=== PATIENT | female | born 1940 | race Caucasian/White ===

== ENCOUNTER → 2016-11-02 | Outpatient (CLI) | payer OTHER ==
--- NOTE | 2016-11-02 17:54 | RADRPT ---
PROCEDURE: XR Pelvis and Hips. CLINICAL INDICATION: Pelvic pain. Bilateral hip pain. TECHNIQUE: Five views. Frontal pelvis. Frontal and lateral right hip. Frontal and lateral left hip. COMPARISON: No prior studies are available for comparison. FINDINGS: There is no fracture or dislocation. The soft tissues are normal. There are severe degenerative changes of both hips with joint space narrowing, osteophytes, subartic ular sclerosis, and mild deformity. There is no lytic or blastic lesion. There are degenerative changes of the lower lumbar spine. IMPRESSION: 1. Severe degenerative changes of both hips. RPTAT: QQ .Roger Meneses MD, MD Date Time Electronically viewed and signed by .Roger Meneses MD, on 11/02/2016 17:53 .R/
== END | disposition home or self-care (01) ==
LOC: HKI 10:45
PROVIDERS: ATTEND Orthopaedic Surgery
DX: M16.0 Bilateral primary osteoarthritis of hip (principal); M25.551 Pain in right hip; M25.552 Pain in left hip
CPT/HCPCS: 73523; G0463

== ENCOUNTER → 2016-11-21 | Outpatient (CLI) | payer OTHER ==
[~2016-11-21] MED LIST: MELO7.5O PO; OMEP40CA6 PO; TRAM50TA2 PO
== END | disposition home or self-care (01) ==
LOC: HKI 10:27
PROVIDERS: ATTEND Orthopaedic Surgery
DX: M25.551 Pain in right hip (principal); M25.552 Pain in left hip; M16.0 Bilateral primary osteoarthritis of hip
CPT/HCPCS: G0463

== ENCOUNTER 2016-11-29 05:50 | Inpatient (IN) | payer OTHER ==
[~2016-11-29] VITALS: Ht 162.6 cm; Wt 84.4 kg
[2016-11-29] VITALS (38 sets, daily range): BP systolic 113–162; BP diastolic 45–96; PULSE 70–86; RESP 10–29; Ht 162.6 cm; Wt 84.4 kg
[2016-11-29] MEDS: LACTATED RINGER'S 1,000 ML IV SCH ×5 (05:30→21:54)
[~2016-11-29 05:50] MED LIST changes: +BUPIVACAINE LIPOSOME/PF 266 MG/20 ML VIAL INFIL ONE; +CEFAZOLIN 2GM/50 ML (PMX) 50 ML X1 BEFORE INCISION IVPB ONE; +CELECOXIB 400 MG PO X1 DOSE PO ONE; +LACTATED RINGER'S 1,000 ML IV SCH; -MELO7.5O PO; -OMEP40CA6 PO; +PAIN COCKTAIL-CEFUROXIME IRR ONE; +PREGABALIN 300 MG PO X1 PO ONE; +SOD CHLORIDE 0.9% IV ONE; -TRAM50TA2 PO; +TRANEXAMIC ACID 830 MG in SOD CHLORIDE 0.9% 100 ML IVPB ONE; +TRANEXAMIC ACID IV ONE; +oxyCODONE (CR) 10 MG TAB [oxyCONTIN] X1 DOSE PO ONE; +traMADOL 50 MG TAB X 1 DOSE PO ONE
[2016-11-29] MEDS ORDERED: BACITRACIN 50000 UNITS INJ ONE (06:35)
[2016-11-29] MEDS ORDERED: DESFLURANE 15 MIN ONE (07:00)
[2016-11-29] MEDS ORDERED: POLYMYXIN B 500000 UNIT INJ ONE (07:05)
[2016-11-29] MEDS ORDERED: VANCOMYCIN 1 GM INJ ONE (07:05)
[2016-11-29] MEDS ORDERED: SODIUM CL BACTERIOSTATIC 30 ML INJ ONE (07:05)
--- NOTE | 2016-11-29 07:17 | HPN ---
Date/Time of Note Date/Time of Note DATE: 11/29/16 TIME: 07:17 Interval H&P Admission Note Pt. seen H&P reviewed: No system changes No change from H&P on 11/15/16 by MONET Holder MD Nov 29, 2016 07:17
[2016-11-29] MEDS ORDERED: FENTAnyl 50 MCG/ML VIAL ONE (07:21)
[2016-11-29] MEDS ORDERED: OMEP40CA6 PO (07:27)
[2016-11-29] MEDS ORDERED: MELO7.5O PO (07:28)
[2016-11-29] MEDS ORDERED: TRAM50TA2 PO (07:28)
[2016-11-29] MEDS ORDERED: MIDAZOLAM 1 MG/ML 2 ML INJ ONE (07:59)
[2016-11-29] MEDS ORDERED: ONDANSETRON 4 MG INJ ONE (08:11)
[2016-11-29] MEDS ORDERED: EPHEDrine SULFATE 50 MG/5 ML SYG ONE (08:11)
[2016-11-29] MEDS ORDERED: SUCCINYLCHOLINE CHLORIDE 100 MG/5 ML SYG IV ONE (08:11)
[2016-11-29] MEDS ORDERED: PROPOFOL 20 ML ONE (08:11)
[2016-11-29] MEDS ORDERED: ROCURONIUM 50 MG INJ ONE (08:11)
[2016-11-29] MEDS ORDERED: LIDOCAINE 2% (SDV) 5 ML INJ ONE (08:11)
[2016-11-29] MEDS ORDERED: DEXAMETHASONE 4 MG/ML 1 ML INJ ONE (08:11)
[2016-11-29] MEDS ORDERED: PROPOFOL 100 ML ONE (08:11)
[2016-11-29] MEDS ORDERED: FAMOTIDINE 20 MG INJ ONE (08:11)
[2016-11-29] MEDS ORDERED: ONDANSETRON 4 MG INJ IV PRN ×2 (10:00→10:30)
[2016-11-29] MEDS ORDERED: FENTAnyl 50 MCG/ML VIAL IV PRN (10:00)
[2016-11-29] MEDS ORDERED: DIPHENHYDRAMINE 50 MG INJ IV PRN (10:00)
[2016-11-29] MEDS ORDERED: MEPERIDINE 25 MG INJ IV PRN (10:00)
[2016-11-29] MEDS ORDERED: PROCHLORPERAZINE 10 MG INJ IV PRN (10:00)
[2016-11-29] MEDS ORDERED: HYDROmorphONE (0.2 MG/ML) 10ML SYG IV PRN (10:00)
--- NOTE | 2016-11-29 10:28 | PN ---
Date/Time of Note Date/Time of Note DATE: 11/29/16 TIME: 10:26 Assessment/Plan Lines/Catheters IV Catheter Type (from Nrsg): Peripheral IV Assessment/Plan Assessment/Plan Stable in PACU, s/p right anterior LETICIA -continue abx until drains removed -pain meds as needed -ASA/SCDs for DVT prophylaxis -OOB with PT -check AM labs -monitor drain -d/c gallegos in AM XR of the right hip is pending at this time Subjective 24 Hr Interval Summary Stable in PACU. Moving all extremities. Denies pain. Exam/Review of Systems Vital Signs Vitals Vital Signs Date Time Temp Pulse Resp B/P Pulse Ox O2 Delivery O2 Flow Rate FiO2 11/29/16 10:19 97.9 11/29/16 07:16 80 16 159/70 98 Exam Free Text/Dictation Hemovac: minimal Dressing dry Incision clean, dry, and intact without redness or drainage 5/5 Quadriceps, Tibialis Anterior, EHL, Gastroc, Soleus, Peroneals Normal sensation Palpable DT/PT, CR <2 sec No distal edema HOWARD TRINIDAD PA-C Nov 29, 2016 10:28
--- NOTE | 2016-11-29 10:29 | OPR ---
Date/Time of Note Date/Time of Note DATE: 11/29/16 TIME: 10:27 Operative Report Free Text/Dictation Dictation # [id number] Procedure Date: Nov 29, 2016 Preoperative Diagnosis Right Hip OA Postoperative Diagnosis Same Operation Performed Right Anterior LETICIA Surgeon: MONET PHELPS MD outpatient physical therapist assistant: HOWARD TRINIDAD PA-C Anesthesia: general, spinal Anesthesiologist: JOZEF SWANSON MD Estimated Blood Loss: 250 - 300 ml's Specimens Femoral Head Tubes/Drains Hemovac x 1 Complications: None Pt Condition Post Procedure: stable Disposition: PACU MONET PHELPS MD Nov 29, 2016 10:29
[2016-11-29] MEDS ORDERED: oxyCODONE 5 MG TAB PO PRN (10:30)
[2016-11-29] MEDS ORDERED: NACL 0.9% 3 ML SYG IV SCH (10:30)
[2016-11-29] MEDS ORDERED: MAGNESIUM HYDROXIDE 30ML CUP PO PRN (10:30)
[2016-11-29] MEDS ORDERED: ASPIRIN (EC) 325 MG TAB PO ONE (10:30)
[2016-11-29] MEDS ORDERED: BISACODYL 10 MG SUPP PR PRN (10:30)
[2016-11-29] MEDS ORDERED: DIPHENHYDRAMINE 25 MG CAP PO PRN (10:30)
[2016-11-29] MEDS ORDERED: HYDROmorphONE 1 MG/ML SYG IV PRN (10:30)
[2016-11-29] MEDS ORDERED: NA PHOSPHATE/BIPHOS 133 ML ENEMA PR PRN (10:30)
[2016-11-29] MEDS: CEFAZOLIN 2 GM/50 ML (PMX) 50 ML IVPB SCH ×2 (10:36→20:35)
[2016-11-29 11:03] LABS: HEMATOCRIT 36.6 % (37.0-47.0); HEMOGLOBIN 11.9 g/dl (12.0-16.0)
[2016-11-29 11:07] LABS: ADD UMIC YES; URINE BILIRUBIN (Dip) NEGATIVE (NEGATIVE); URINE BLOOD (Dip) 3+ (NEGATIVE); URINE COLOR LT. YELLOW (YELLOW); URINE GLUCOSE (Dip) NEGATIVE (NEGATIVE); URINE KETONES (Dip) NEGATIVE (NEGATIVE); URINE LEUKOCYTE ESTERASE (Dip) NEGATIVE (NEGATIVE); URINE NITRITE (Dip) NEGATIVE (NEGATIVE); URINE TOTAL PROTEIN (Dip) NEGATIVE (NEGATIVE); URINE UROBILINOGEN (Dip) 0.2 E.U./dL (0.1-1.0)
--- NOTE | 2016-11-29 11:09 | OPR ---
DATE OF OPERATION: 11/29/2016 PREOPERATIVE DIAGNOSIS: Right hip osteoarthritis. POSTOPERATIVE DIAGNOSIS: Right hip osteoarthritis. OPERATION PERFORMED: Right anterior total hip arthroplasty. SURGEON: Monet Garcia MD LARDER COOK: AMBER Fermin COMPONENTS USED: DePuy size 50 mm Gription Bo[place] cup, 50/32 neutral AltrX polyethylene liner, size 6 standard Actis stem, 32+1 ceramic head. ANESTHESIA: Spinal plus general endotracheal intubation, plus periarticular injection. ANESTHESIOLOGIST: Dr. Rosalina Corrales ESTIMATED BLOOD LOSS: 300 mL INTRAVENOUS FLUIDS: 2250 mL of crystalloid. SPECIMENS: Femoral head. DRAINS: Hemovac x1 COMPLICATIONS: None. DISPOSITION: The patient tolerated the procedure well and was taken to the recovery room in stable condition. INDICATIONS: The patient is a 75-year-old woman who has had progressive worsening pain in the right hip with radiographic evidence of severe osteoarthritis. She has failed non-surgical means of treatment to control her pain, including activity modifications, pain medications and ambulatory assist devices. Despite these measures, she has had worsening pain, and I felt she would benefit from a total hip arthroplasty through an anterior approach. The risks, benefits, and alternatives of the procedure were explained in detail to the patient. I explained the risks of the surgery to include, but not be limited to: bleeding and possible need for blood transfusion; infection; pain; stiffness; neurovascular injury with possible numbness, weakness, and/or paralysis anywhere from the hip down to the toes; fracture; instability; dislocation; leg length inequality; wear and/or loosening of the prosthesis and possible need for future revision; blood clots; pulmonary embolism; and anesthetic complications such as heart attack, stroke, GI bleed, pneumonia, and/ or . Ample time was allowed for the patient to ask questions, all of which were addressed and answered. The patient understood the risks involved and wished to proceed. Informed consent was signed prior to the procedure. PROCEDURE: The patient's right hip was initialed with a marking pen in the preoperative area to identify the correct operative site. The patient was brought to the operating room and transferred from the [facility] to the [facility] where a spinal anesthetic was administered. The patient was then anesthetized and intubated. A Hallman catheter was placed. Both feet were placed into well-padded boots which were then placed into the leg holders of the traction booms. A timeout was performed to confirm that the right side was the correct operative site. The patient was given 2 g of intravenous Ancef within one hour prior to the procedure. The operative hip was prepped and draped in the usual sterile fashion. A 10 cm oblique incision was made over the anterior aspect of the hip and carried down through subcutaneous tissue and fat with sharp dissection. The tensor fascia vargas was incised along the length of the wound. The tensor fascia muscle was retracted laterally and the sartorius medially. The anterior circumflex vessels were identified and tied off with 2-0 silk suture and coagulated with the Tissue Link diver pumper. The rectus femoris was elevated off the anterior capsule and an anterior capsulectomy performed. A femoral neck osteotomy was made and the head removed from the acetabulum. The acetabulum was denuded of cartilage circumferentially, as was the femoral head. Retractors were placed around the acetabulum. The remnants of the labrum and ligamentum teres were excised. I reamed the acetabulum to the medial wall and then went into an anatomic position and increased the reamer size in 2 mm increments until I got a good bite and was down to bleeding subchondral bone. The Boise cup was opened and impacted into the acetabulum and sat flush circumferentially, getting a good bite. C-arm imaging showed it had about 40 to 45 degrees of abduction and 20 degrees of anteversion. The real liner was opened and impacted into the acetabulum and sat flush circumferentially. Attention was turned towards the femur. The operative leg was carefully lowered to the floor with the leg adducted. The foot was then externally rotated to approximately 110 degrees. A posteromedial release was performed to optimize exposure. The femoral hook was placed underneath the proximal femur and the hydraulic lift was then used to elevate the femur up out of the wound. The cookie cutter osteotome was used to remove the remaining overhanging greater trochanter. The femur was then broached, going up in one size increments until it sat flush with the neck cut and a stable fit was achieved. The trial neck and head were assembled and reduced into the acetabulum. Fluoroscopic imaging showed the components to be in good position and the leg lengths and offsets to be equal. At this point, the trial was dislocated and the trial broach removed. The canal was irrigated and dried. The real stem was opened and impacted into the femur. The trunnion was irrigated and dried, and the real femoral head was impacted onto the trunnion, and reduced into the acetabulum. The soft tissues were infiltrated with a mixture of 150 mg of 0.5% Bupivacaine, 8 mg of Duramorph, 300 mcg of epinephrine, 30 mg of Toradol, 100 mcg of clonidine, 750 mg of cefuroxime and 86 mL of normal saline, followed by an injection of 266 mg of liposomal Bupivacaine. At this point the hip was irrigated with a mixture of betadine/saline and then antibiotic saline with pulsatile lavage. A Hemovac drain was placed in the deep portion of the wound and brought out the anterolateral thigh. There was good hemostasis. The tensor fascia vargas was repaired with a running #1 Vicryl. The deep fat layer was irrigated and closed with 2-0 Stratafix and the subcutaneous layer closed with 3 -0 Vicryl and the skin was closed with osiris and then sealed with Dermabond. The drain was secured with 3-0 nylon. Dictated By: MONET VERMA/SALLIE Conf#: [id number] DID#: [id number] MTDJoe
[2016-11-29 11:11] LABS: BACTERIA,URINE MANY
[2016-11-29 11:16] LABS: CALCIUM 8.6 mg/dl (8.4-10.2); CREATININE 0.61 mg/dl (0.44-1.00); POTASSIUM 3.8 mmol/L (3.5-5.1)
[2016-11-29] MEDS ORDERED: EXPAREL NOTE (BUPIVICAINE LIPOSOMAL) XX SCH ×2 (12:00)
[2016-11-29] MEDS: traMADol 50 MG TAB PO SCH ×2 (12:00→18:19)
[2016-11-29] MEDS: ACETAMINOPHEN 1000MG/100ML IV 100 ML IVPB SCH ×2 (12:00→18:18)
--- NOTE | 2016-11-29 12:06 | RADRPT ---
PROCEDURE: X-ray fluoroscopy guidance CLINICAL INDICATION: Right hip pain, right hip replacement, fluoroscopic guidance. TECHNIQUE: Fluoroscopic guidance was utilized for an intraoperative procedure. COMPARISON: None available FINDINGS: Fluoroscopic guidance was utilized for and intraoperative procedure. 35 seconds of fluoroscopy time was utilized for the procedure. 14 x-ray images were obtained during the procedure in progress. Jessica l images demonstrate a right hip replacement in grossly appropriate position and alignment. IMPRESSION: X-ray fluoroscopic guidance utilized for intraoperative procedure. Right hip replacement in grossly appropriate position and alignment Please see procedure note for details. RPTAT: AA .Kong Paez MD, MD Date Time Electronically viewed and signed by .Kong Paez MD, MD on 11/29/2016 12:06 .P/
--- NOTE | 2016-11-29 12:31 | RADRPT ---
PROCEDURE: XR Pelvis. CLINICAL INDICATION: Status post right hip replacement. TECHNIQUE: Single AP view of the pelvis. COMPARISON: November 02, 2016 FINDINGS: Right hip replacement is identified. The prosthetic components are in appropriate position and alig nment. The osseous structures are intact. No destructive bony lesions are observed. Severe narrow ing of the left hip joint is observed. Soft tissue air over the right hip is procedural in nature. IMPRESSION: Right hip replacement. Prosthetic components are in appropriate position and alignment. Severe osteoarthritis of the left hip. RPTAT: AA .Kong Paez MD, MD Date Time Electronically viewed and signed by .Kong Paez MD, on 11/29/2016 12:31 .P/
[2016-11-29] MEDS ORDERED: TRANEXAMIC ACID 840 MG in SOD CHLORIDE 0.9% 100 ML IVPB ONE ×2 (13:30→16:30)
[2016-11-29] MEDS: PANTOPRAZOLE (EC) 40 MG TAB PO SCH (18:18)
[2016-11-29] MEDS: DOCUSATE SODIUM 100 MG CAP PO SCH (20:35)
[2016-11-29] MEDS: PREGABALIN 50 MG CAP PO SCH (20:35)
[2016-11-30] MEDS: ACETAMINOPHEN 1000MG/100ML IV 100 ML IVPB SCH ×2 (00:50→06:47)
[2016-11-30] MEDS: traMADol 50 MG TAB PO SCH ×5 (00:53→23:58)
[2016-11-30] MEDS: LACTATED RINGER'S 1,000 ML IV SCH ×4 (00:54→18:10)
[2016-11-30 03:06] VITALS: BP 98/55; PULSE 80; RESP 18
[2016-11-30] MEDS: CEFAZOLIN 2 GM/50 ML (PMX) 50 ML IVPB SCH (04:09)
[2016-11-30 05:05] LABS: HEMATOCRIT 33.4 % (37.0-47.0); HEMOGLOBIN 10.8 g/dl (12.0-16.0)
[2016-11-30 05:22] LABS: CALCIUM 8.6 mg/dl (8.4-10.2); CREATININE 0.49 mg/dl (0.44-1.00); POTASSIUM 4.6 mmol/L (3.5-5.1)
[2016-11-30 05:33] LABS: ADD UMIC YES; URINE BILIRUBIN (Dip) NEGATIVE (NEGATIVE); URINE BLOOD (Dip) 3+ (NEGATIVE); URINE COLOR LT. YELLOW (YELLOW); URINE GLUCOSE (Dip) NEGATIVE (NEGATIVE); URINE KETONES (Dip) 15 (NEGATIVE); URINE LEUKOCYTE ESTERASE (Dip) NEGATIVE (NEGATIVE); URINE NITRITE (Dip) NEGATIVE (NEGATIVE); URINE TOTAL PROTEIN (Dip) TRACE (NEGATIVE); URINE UROBILINOGEN (Dip) 0.2 E.U./dL (0.1-1.0)
[2016-11-30 06:04] LABS: URINE RBCS >200 /HPF (0)
[2016-11-30] MEDS: PANTOPRAZOLE (EC) 40 MG TAB PO SCH ×2 (06:47→18:11)
[2016-11-30 08:04] VITALS: BP 120/64; RESP 19
--- NOTE | 2016-11-30 08:10 | PN ---
Date/Time of Note Date/Time of Note DATE: 11/30/16 TIME: 08:08 Assessment/Plan Lines/Catheters IV Catheter Type (from Nrsg): Peripheral IV Hallman in Place (from Nrsg): No Assessment/Plan Assessment/Plan Stable POD #1, s/p right anterior LETICIA -d/c abx -pain meds as needed -ASA/SCDs for DVT prophylaxis -OOB with PT -drain removed -check AM labs -dressing changed -d/c planning. Will likely go home upon discharge Subjective 24 Hr Interval Summary No acute overnight events. Denies significant pain. Began PT yesterday. VSS, afebrile. Will plan to go home upon discharge. Exam/Review of Systems Vital Signs Vitals Vital Signs Date Time Temp Pulse Resp B/P Pulse Ox O2 Delivery O2 Flow Rate FiO2 11/30/16 08:04 98.5 80 19 120/64 100 11/30/16 03:06 Nasal Cannula 2.0 Intake and Output 11/29/16 11/29/16 11/30/16 15:00 23:00 07:00 Intake Total 2300 ml 1750 ml 1585 ml Output Total 445 ml 730 ml 1400 ml Balance 1855 ml 1020 ml 185 ml Exam Free Text/Dictation Hemovac: 125cc Dressing dry Incision clean, dry, and intact without redness or drainage 5/5 Quadriceps, Tibialis Anterior, EHL, Gastroc, Soleus, Peroneals Normal sensation Palpable DT/PT, CR <2 sec No distal edema Results Result Diagram: 11/30/16 04311/30/16 043 HOWARD TRINIDAD PA-C Nov 30, 2016 08:10
[2016-11-30] MEDS: PREGABALIN 50 MG CAP PO SCH ×2 (08:30→20:45)
[2016-11-30] MEDS: ASPIRIN (EC) 325 MG TAB PO SCH ×2 (08:30→20:45)
[2016-11-30] MEDS: DOCUSATE SODIUM 100 MG CAP PO SCH ×2 (08:30→20:45)
[2016-11-30] MEDS: oxyCODONE 5 MG TAB PO PRN (09:29)
[2016-11-30 20:00] VITALS: BP 140/63; RESP 19
[2016-12-01] MEDS: LACTATED RINGER'S 1,000 ML IV SCH ×2 (02:10→10:10)
[2016-12-01] MEDS: PANTOPRAZOLE (EC) 40 MG TAB PO SCH ×2 (05:09→17:38)
[2016-12-01] MEDS: traMADol 50 MG TAB PO SCH ×3 (05:09→17:38)
[2016-12-01 05:33] LABS: HEMATOCRIT 33.9 % (37.0-47.0); HEMOGLOBIN 11.2 g/dl (12.0-16.0)
[2016-12-01 05:45] LABS: POTASSIUM 3.6 mmol/L (3.5-5.1)
[2016-12-01 05:48] LABS: CREATININE 0.54 mg/dl (0.44-1.00)
[2016-12-01 05:49] LABS: CALCIUM 8.7 mg/dl (8.4-10.2)
[2016-12-01 08:00] VITALS: BP 175/84; RESP 18
[2016-12-01] MEDS: ASPIRIN (EC) 325 MG TAB PO SCH ×2 (08:57→20:33)
[2016-12-01] MEDS: DOCUSATE SODIUM 100 MG CAP PO SCH ×2 (08:57→20:33)
[2016-12-01] MEDS: PREGABALIN 50 MG CAP PO SCH ×2 (08:57→20:33)
--- NOTE | 2016-12-01 15:56 | PN ---
Date/Time of Note Date/Time of Note DATE: 12/01/16 TIME: 15:55 Assessment/Plan Lines/Catheters IV Catheter Type (from Nrsg): Saline Lock Hallman in Place (from Nrsg): No Assessment/Plan Assessment/Plan Stable POD #2, s/p right anterior LETICIA -pain meds as needed -ASA/SCDs for DVT prophylaxis -OOB with PT -check AM labs -dressing changed -Will likely go home tomorrow Subjective 24 Hr Interval Summary No acute overnight events. Denies significant pain but is complaining of some burning around the incision. VSS, afebrile. Will plan to go home tomorrow. Exam/Review of Systems Vital Signs Vitals Vital Signs Date Time Temp Pulse Resp B/P Pulse Ox O2 Delivery O2 Flow Rate FiO2 12/01/16 08:00 97.9 79 18 175/84 95 11/30/16 03:06 Nasal Cannula 2.0 Intake and Output 11/30/16 11/30/16 12/01/16 15:00 23:00 07:00 Intake Total 200 ml 700 ml 1000 ml Output Total 1200 ml Balance 200 ml -500 ml 1000 ml Exam Free Text/Dictation Dressing dry Incision clean, dry, and intact without redness or drainage 5/5 Quadriceps, Tibialis Anterior, EHL, Gastroc, Soleus, Peroneals Normal sensation Palpable DT/PT, CR <2 sec No distal edema Results Result Diagram: 12/01/16 0435 12/01/16 0439 HOWARD TRINIDAD PA-C Dec 01, 2016 15:56
[2016-12-01] MEDS ORDERED: POTASSIUM CHLORIDE (SR) 10 MEQ TAB PO ONE (16:30)
--- NOTE | 2016-12-01 16:44 | CONS ---
DATE OF ADMISSION: 11/29/2016 DATE OF CONSULTATION: 12/01/2016 TYPE OF CONSULTATION: Postoperative medical. Dear Dr. Watts: Thank you very much for allowing me to evaluate the above patient, a 75-year-old female, who just un derwent right hip arthroplasty. HISTORICAL EVENTS: As you well know, this patient has had progressive disabling pain involving her right hip, and elected to proceed with the above surgery. Postoperatively, she has done well except for some burning and tingling involving the right lateral thigh, without distal pain radiating into the calf or foot. She denies cough, wheezing, shortness of breath, abdominal pain or chest pain. She had some slight nausea and vomiting after physical therapy early this morning, but this has not persisted. PAST MEDICAL HISTORY: 1. Prior smoker. 2. History of gastroesophageal reflux disease. 3. History of osteopenia. 4. History of left leg sciatica. 5. Peripheral vascular disease, asymptomatic. 6. Adhesive capsulitis of the left shoulder. MEDICATIONS: Prior to admission include: 1. Calcium 500 mg every day. 2. Vitamin D3 1000 per day. 3. Omeprazole 40 mg per day. ALLERGIES: To be reviewed. FAMILY HISTORY: To be reviewed. PHYSICAL EXAMINATION: GENERAL: [place] female, in no acute distress. VITAL SIGNS: BP 122/80, pulse 70, respirations are 20, she is afebrile. EYES: Extraocular muscles were full. NOSE, MOUTH, AND THROAT: Normal. NECK: Supple. There was no jugular venous distention, thyroid enlargement or adenopathy. LUNGS: Clear. HEART: Rhythm regular. No murmur. No third or fourth sound. ABDOMEN: Nontender. Liver and spleen were not palpable. No masses or tenderness were noted. EXTREMITIES: No edema. Calves nontender. Pulses, popliteals 2+. IMPRESSION: 1. Stable postoperatively right hip arthroplasty. 2. History of gastroesophageal reflux disease. Will continue PPI. 3. Will evaluate with you for signs and symptoms of thromboembolic disease, despite appropriate DVT prophylaxis. Dictated By: JAVON VALDES/SALLIE Conf#: [id number] DID#: [id number]
[2016-12-01 19:45] VITALS: BP 112/65; RESP 22
[2016-12-02 05:28] LABS: HEMATOCRIT 33.8 % (37.0-47.0); HEMOGLOBIN 10.8 g/dl (12.0-16.0)
[2016-12-02] MEDS: PANTOPRAZOLE (EC) 40 MG TAB PO SCH (05:29)
[2016-12-02] MEDS: traMADol 50 MG TAB PO SCH ×2 (05:29)
[2016-12-02 05:39] LABS: CALCIUM 8.8 mg/dl (8.4-10.2); CREATININE 0.52 mg/dl (0.44-1.00)
[2016-12-02 05:40] LABS: MAGNESIUM 1.9 mg/dl (1.7-2.5); PHOSPHORUS 3.3 mg/dl (2.5-4.9)
[2016-12-02 07:54] VITALS: BP 142/73; RESP 18
--- NOTE | 2016-12-02 08:07 | PDOCDIS ---
Discharge Instructions DIAGNOSIS Discharge Diagnosis: s/p right anterior LETICIA CONDITION Patient Condition: Good HOME CARE INSTRUCTIONS: Diet Instructions: Regular ACTIVITY: Activity Restrictions: Slowly Increase Activity Avoid heavy lifting Do not Drive Avoid Heavy Housework Bathing Restrictions: Tub Bath REFERRALS Agency Name and Phone Number: [facility] [phone] OTHER ORDERS: Other Orders: WB STATUS: WBAT Strengthening exercises for both upper and un-operated lower extremities. 1. Gait training with front wheeled walker 2. Wide base gait, no pivot turns. 3. Abductor strengthening. 4. Quadriceps and hamstring strengthening. 5. May switch to cane in contra lateral hand 6 weeks after surgery. 6. Physical Therapy can open case if nursing is not available. 7. Ice Packs while at rest to surgical wound for 20 minutes, 3 times/day. 8. Patient requires mobile SCDs to reduce risk of developing DVT following LETICIA. Patient will use the mobile SCDs for 30 days postoperatively. Hip Precautions: No posterior hip precautions. Bathing assistance by home health aide twice weekly if Medicare patient. Occupational Therapy: Evaluation for assistive devices and ADL training. Wound Care: Keep incision dry & covered with Tegaderm until first visit with Dr. Garcia Anticoagulation Orders: Enteric Coated Aspirin 325 mg po bid x 6 weeks from date of surgery Follow-up:Call for an appointment with Dr. Garcia in 1 week after discharged from hospital at DME Orders: AMANDA, 3-in-1 Commode, Mobile SCDs HOWARD TRINIDAD PA-C Dec 02, 2016 08:06
[2016-12-02] MEDS ORDERED: TRAM50TA2 PO (08:08)
[2016-12-02] MEDS ORDERED: ASPI325T32 PO (08:08)
[2016-12-02] MEDS ORDERED: HYDR-906 PO (08:08)
[2016-12-02] MEDS ORDERED: GABA300C PO (08:27)
--- NOTE | 2016-12-02 08:31 | PN ---
Date/Time of Note Date/Time of Note DATE: 12/02/16 TIME: 08:30 Assessment/Plan Lines/Catheters IV Catheter Type (from Nrsg): Saline Lock Hallman in Place (from Nrsg): No Assessment/Plan Assessment/Plan Stable POD #3, s/p right anterior LETICIA -pain meds as needed -ASA/SCDs -OOB with PT -dressing changed -d/c home today -follow up in the office in 1 week Subjective 24 Hr Interval Summary No acute overnight events. Minimal pain. Progressing well with PT. Will plan to go home today. Exam/Review of Systems Vital Signs Vitals Vital Signs Date Time Temp Pulse Resp B/P Pulse Ox O2 Delivery O2 Flow Rate FiO2 12/02/16 07:54 98.0 76 18 142/73 93 11/30/16 03:06 Nasal Cannula 2.0 Intake and Output 12/01/16 12/01/16 12/02/16 15:00 23:00 07:00 Intake Total 800 ml 850 ml Output Total 1500 ml 1350 ml Balance -700 ml -500 ml Exam Free Text/Dictation Dressing dry Incision clean, dry, and intact without redness or drainage 5/5 Quadriceps, Tibialis Anterior, EHL, Gastroc, Soleus, Peroneals Normal sensation Palpable DT/PT, CR <2 sec No distal edema Results Result Diagram: 12/02/16 0450 12/02/16 0450 HOWARD TRINIDAD PA-C Dec 02, 2016 08:31
[2016-12-02] MEDS: DOCUSATE SODIUM 100 MG CAP PO SCH (08:33)
[2016-12-02] MEDS: PREGABALIN 50 MG CAP PO SCH (08:33)
[2016-12-02] MEDS: ASPIRIN (EC) 325 MG TAB PO SCH (08:33)
[2016-12-02] MEDS: oxyCODONE 5 MG TAB PO PRN (08:36)
--- NOTE | 2016-12-02 08:44 | CONS ---
Date/Time of Note Date/Time of Note DATE: 12/02/16 TIME: 08:43 Assessment/Plan Assessment/Plan Additional Assessment/Plan 1. Right hip replacement, overall doing well, rev with you burning discomfort and rx ? 2. GERD, quiescent 3. OK to dc if OK with you and PT Consultation Date/Type/Reason Admit Date/Time Nov 29, 2016 at 05:50 Initial Consult Date Detailed Summary Respiratory: No shortness of breath Cardiovascular: No chest pain Gastrointestinal: no complaints Genitourinary: no complaints Musculoskeletal: bone/joint pain (burning discomfort in right thigh) Exam/Review of Systems Vital Signs Vitals Vital Signs Date Time Temp Pulse Resp B/P Pulse Ox O2 Delivery O2 Flow Rate FiO2 12/02/16 07:54 98.0 76 18 142/73 93 11/30/16 03:06 Nasal Cannula 2.0 Intake and Output 12/01/16 12/01/16 12/02/16 15:00 23:00 07:00 Intake Total 800 ml 850 ml Output Total 1500 ml 1350 ml Balance -700 ml -500 ml Exam Neck: No jvd Respiratory: clear to auscultation Cardiovascular: regular rate and rhythm Gastrointestinal: soft Extremities: No edema (and no calf tend, right thigh wound looks fine, no local tend) Results Result Diagram: 12/02/16 0450 12/02/16 0450 Results 24 hrs Laboratory Tests Test 12/02/16 04:50 Hemoglobin 10.8 L Hematocrit 33.8 L Sodium Level 138 Potassium Level 4.0 Chloride Level 103 Carbon Dioxide Level 29 Anion Gap 10 Blood Urea Nitrogen 8 Creatinine 0.52 Glucose Level 95 Calcium Level 8.8 Phosphorus Level 3.3 Magnesium Level 1.9 Medications Medications Current Medications Miscellaneous Information 1 ea NOTE XX ; Start 11/29/16 at 12:00; Stop 12/03/16 at 11:59 Tramadol HCl (Ultram) 50 mg Q6 PO Last administered on 12/02/16 05:29; Admin Dose 50 MG; Start 11/29/16 at 12:00; Stop 12/02/16 at 11:59 Oxycodone HCl (Roxicodone) 5 mg Q4H PRN PO PAIN LEVEL 1-3 Last administered on 12/02/16 08:36; Admin Dose 5 MG; Start 11/29/16 at 10:30 Oxycodone HCl (Roxicodone) 10 mg Q4H PRN PO PAIN LEVEL 4-7; Start 11/29/16 at 10:30 Hydromorphone HCl (Dilaudid) 1 mg Q3H PRN IV PAIN LEVEL 8-10; Start 11/29/16 at 10:30 Ondansetron HCl (Zofran Inj) 4 mg Q6H PRN IV NAUSEA AND/OR VOMITING Last administered on 12/01/16 11:06; Admin Dose 4 MG; Start 11/29/16 at 10:30 Bisacodyl (Dulcolax Supp) 10 mg Q12H PRN [place] CONSTIPATION; Start 11/29/16 at 10: 30 Magnesium Hydroxide (Milk Of Mag) 30 ml BID PRN PO CONSTIPATION Last administered on 12/01/16 08:57; Admin Dose 30 ML; Start 11/29/16 at 10:30 Sodium Biphosphate/ Sodium Phosphate (Fleet Enema) 133 ml DAILY PRN [place] CONSTIPATION; Start 11/29/16 at 10:30 Docusate Sodium (Colace) 100 mg BID PO Last administered on 12/02/16 08:33; Admin Dose 100 MG; Start 11/29/16 at 21:00 Diphenhydramine HCl (Benadryl) 25 mg Q6H PRN PO PRURITUS; Start 11/29/16 at 10: 30 Aspirin (Ecotrin) 325 mg BID PO Last administered on 12/02/16 08:33; Admin Dose 325 MG; Start 11/30/16 at 09:00 Pregabalin (Lyrica) 50 mg BID PO Last administered on 12/02/16 08:33; Admin Dose 50 MG; Start 11/29/16 at 21:00 Pantoprazole (Protonix Tab) 40 mg BID@,18 PO Last administered on 12/02/16 05:29; Admin Dose 40 MG; Start 11/29/16 at 18:00 JAVON BANSAL MD Dec 02, 2016 08:44
--- NOTE | 2016-12-02 11:22 | DS ---
DATE OF ADMISSION: 11/29/2016 DATE OF DISCHARGE: 12/02/2016 CONDITION ON DISCHARGE: Stable. ADMITTING DIAGNOSIS: Right hip osteoarthritis. DISCHARGE DIAGNOSIS: Status post right anterior total hip arthroplasty. PROCEDURE PERFORMED: Right anterior total hip arthroplasty. HOSPITAL COURSE: This is a 75-year-old female who was seen in the clinic initially complaining of right knee pain. X-rays demonstrated advanced osteoarthritis of the right hip, and it was thought she would benefit from right anterior total hip arthroplasty. On 11/29/2016, the patient was admitted and taken to the operating room where she underwent a right anterior total hip arthroplasty. There were no intraoperative complications. The patient tolerated the procedure well. She was taken to the recovery room in stable condition. She was started on aspirin and SCDs for DVT prophylaxis. Pain was well controlled with oral pain medication. She remained hemodynamically stable and neurovascularly intact throughout her hospital stay. She began physical therapy on postoperative day 0 and continued to make good progress. She was deemed stable for discharge home on postoperative day #3. Prior to discharge, the incision was inspected and noted to be clean, dry, and intact. Dressing changes were done prior to the patient going home. LABORATORY ANALYSIS: Hemoglobin 10.8, hematocrit 33.8. Chemistry panel was within normal limits. DISCHARGE MEDICATIONS: 1. Norman 5/325 mg. 2. Tramadol 50 mg. 3. Aspirin 325 mg. 4. Neurontin 300 mg. Additionally, the patient is to resume all of her normal home medications. DISCHARGE INSTRUCTIONS: The patient will be discharged home in stable condition. She is to resume her normal diet. Activity includes weightbearing as tolerated on the right lower extremity. She will be getting physical therapy with home health. She will be discharged home on the medications noted above and is to resume all of her normal home medications. The patient is to call the office or go to the emergency room for any concerns including increased redness, swelling, drainage, or fever or any concerns regarding the operation or site of incision. FOLLOWUP: The patient is to follow up in the office in 1 week. Dictated By: HOWARD DURHAM/SALLIE Conf#: [id number] DID#: [id number] MTDJoe
== END 2016-12-02 12:58 | disposition home health service (06) | DRG 470 ==
LOC: REC 05:50 → MS1 12:41
PROVIDERS: ADMIT Orthopaedic Surgery; ATTEND Orthopaedic Surgery
PROC: 0SR904A Replacement of Right Hip Joint with Ceramic on Polyethylene Synthetic Substitute, Uncemented, Open Approach (ICD-10-PCS; principal; 2016-11-29 07:00)
DX: M16.11 Unilateral primary osteoarthritis, right hip (principal); E66.9 Obesity, unspecified; K21.9 Gastro-esophageal reflux disease without esophagitis; Z68.31 Body mass index [BMI] 31.0-31.9, adult
CPT/HCPCS: 72170; 73530; 80048; 81001; 81003; 83735; 84100; 85014; 85018; 86850; 86900; 86901; 86920; 87081; 87086; 97110; 97116; 97163; 97166; 97530; 97535; Z7610; C1776; C9290; J0131; J0171; J0330; J0690; J0697; J0735; J1100; J1170; J1885; J2250; J2274; J2405; J3010; J3370; J7120

== ENCOUNTER → 2016-12-09 | Outpatient (CLI) | payer OTHER ==
[~2016-12-09] MED LIST changes: +ASPI325T32 PO; -BUPIVACAINE LIPOSOME/PF 266 MG/20 ML VIAL INFIL ONE; -CEFAZOLIN 2GM/50 ML (PMX) 50 ML X1 BEFORE INCISION IVPB ONE; -CELECOXIB 400 MG PO X1 DOSE PO ONE; +GABA300C PO; +HYDR-906 PO; -LACTATED RINGER'S 1,000 ML IV SCH; +OMEP40CA6 PO; -PAIN COCKTAIL-CEFUROXIME IRR ONE; -PREGABALIN 300 MG PO X1 PO ONE; -SOD CHLORIDE 0.9% IV ONE; +TRAM50TA2 PO; -TRANEXAMIC ACID 830 MG in SOD CHLORIDE 0.9% 100 ML IVPB ONE; -TRANEXAMIC ACID IV ONE; -oxyCODONE (CR) 10 MG TAB [oxyCONTIN] X1 DOSE PO ONE; -traMADOL 50 MG TAB X 1 DOSE PO ONE
--- NOTE | 2016-12-09 12:43 | RADRPT ---
PROCEDURE: XR pelvis/right hip. CLINICAL INDICATION: Hip pain TECHNIQUE: AP pelvis/lateral right hip view performed. COMPARISON: No prior studies are available for comparison. FINDINGS: There is a right total hip replacement. There is no evidence of loosening of the prosthesis. No hard fragoso failure is identified. There is severe left hip osteoarthrosis. This is associated with joint space narrowing, subchondral sclerosis, subchondral cyst formation and osteophytosis. There is normal osseous mineralization. N o fractures or osseous lesions are identified. The soft tissues are unremarkable. IMPRESSION: Right total hip replacement. Severe left hip osteoarthrosis. RPTAT: HGDB .Harsha Dominguez MD, MD Date Time Electronically viewed and signed by .Harsha Dominguez MD, on 12/09/2016 12:42 .B/
--- NOTE | 2016-12-09 18:15 | HKNOTE ---
DATE OF SERVICE: 12/09/2016 INTERVAL HISTORY: The patient presents today for her first postoperative evaluation. She is 10 days status post right anterior total hip arthroplasty. She is doing well overall. She denies any significant pain. She is taking aspirin twice daily for DVT prophylaxis. She is doing physical therapy with home health and is progressing appropriately. She denies any fevers, chills, erythema, or warmth. She presents today for her first postoperative evaluation. PHYSICAL EXAMINATION: GENERAL: Today, she is alert and oriented x4, in no acute distress. She is ambulating with a front-wheel walker. EXTREMITIES: Exam of the incision demonstrates it to be clean, dry, and intact. [place] are in place. She has no pain with gentle passive range of motion. There is no significant soft tissue swelling. There is no erythema or warmth noted. Homans sign is negative. Compartments are otherwise soft. She is neurovascularly intact distally. IMAGING: X-rays of the right hip are obtained today and reviewed by me. They demonstrate good anatomic alignment with no fracture or dislocation identified. ASSESSMENT: Ten days status post right anterior total hip arthroplasty. PLAN: The osiris were removed today and Steri-Strips were applied. She is to continue aspirin twice daily for 6 weeks for DVT prophylaxis. She is to continue physical therapy with home health and transition to an outpatient physical therapy program as needed. We will see her back in 4 weeks for repeat evaluation. She is to call the office in the meantime if she has any concerns. Dictated By: HOWARD CLARK for MONET DURHAM/SALLIE Conf#: [id number] DID#: [id number] ADRIANAD
== END | disposition home or self-care (01) ==
LOC: HKI 10:10
PROVIDERS: ATTEND Orthopaedic Surgery
DX: Z47.1 Aftercare following joint replacement surgery (principal); Z96.641 Presence of right artificial hip joint
CPT/HCPCS: 73502

== ENCOUNTER → 2017-01-09 | Outpatient (CLI) | payer OTHER ==
--- NOTE | 2017-01-09 11:46 | RADRPT ---
PROCEDURE: XR pelvis/right hip. CLINICAL INDICATION: Hip pain TECHNIQUE: AP pelvis/lateral right hip view available for review. COMPARISON: 12/09/2016 FINDINGS: There is a right total hip replacement. There is no evidence of loosening of the prosthesis. No hard fragoso failure is identified. There is severe left hip osteoarthrosis. This is associated with joint space narrowing, subchondral sclerosis, subchondral cyst formation and osteophytosis. There is normal osseous mineralization. No fractures or osseous lesions are identified. The soft tissues are unremarkable. IMPRESSION: Right total hip replacement. Severe left hip osteoarthrosis. RPTAT: HGDB .Harsha Dominguez MD, MD Date Time Electronically viewed and signed by .Harsha Dominguez MD, on 01/09/2017 11:46 .B/
== END | disposition home or self-care (01) ==
LOC: HKI 10:57
PROVIDERS: ATTEND Orthopaedic Surgery
DX: Z47.1 Aftercare following joint replacement surgery (principal); Z96.641 Presence of right artificial hip joint; M25.552 Pain in left hip; M16.0 Bilateral primary osteoarthritis of hip
CPT/HCPCS: 73502

== ENCOUNTER → 2017-02-15 | Outpatient (CLI) | payer OTHER ==
--- NOTE | 2017-02-15 15:11 | RADRPT ---
PROCEDURE: XR Pelvis and Hips. CLINICAL INDICATION: Pelvic pain. Bilateral hip pain. TECHNIQUE: Five views. Frontal pelvis. Frontal and lateral right hip. Frontal and lateral left hip. COMPARISON: 01/09/2017. FINDINGS: There is no fracture or dislocation. The soft tissues are normal. There is a right hip total arthroplasty which appears satisfactory. There is no fracture, dislocati on, or loosening. There are severe degenerative changes of the left hip with joint space narrowing, osteophytes, subarticular sclerosis, subarticular cysts, and deformity. IMPRESSION: 1. Satisfactory postoperative appearance of the right hip. 2. Severe degenerative changes of the left hip. RPTAT: QQ .Roger Meneses MD, MD Date Time Electronically viewed and signed by .Roger Meneses MD, on 02/15/2017 15:10 .R/
== END | disposition home or self-care (01) ==
LOC: HKI 10:30
PROVIDERS: ATTEND Orthopaedic Surgery
DX: Z01.818 Encounter for other preprocedural examination (principal); M16.0 Bilateral primary osteoarthritis of hip; Z96.641 Presence of right artificial hip joint
CPT/HCPCS: 73502; 73523; G0463

== ENCOUNTER 2017-02-23 05:32 | Inpatient (IN) | payer OTHER ==
[2017-02-15 12:45] VITALS: BMI 28.8
[2017-02-23] VITALS (15 sets, daily range): BP systolic 99–131; BP diastolic 55–77; PULSE 64–82; RESP 14–34; Ht 162.6 cm; Wt 79.1 kg
[~2017-02-23] VITALS: Ht 162.6 cm; Wt 79.1 kg
[2017-02-23] MEDS: LACTATED RINGER'S 1,000 ML IV SCH ×5 (06:00→19:00)
[2017-02-23] MEDS ORDERED: BUPIVACAINE LIPOSOME/PF 266 MG/20 ML VIAL INFIL ONE (06:00)
[2017-02-23] MEDS ORDERED: traMADOL 50 MG TAB X 1 DOSE PO ONE (06:00)
[2017-02-23] MEDS ORDERED: PREGABALIN 300 MG PO X1 PO ONE (06:00)
[2017-02-23] MEDS ORDERED: CEFAZOLIN 2GM/50 ML (PMX) 50 ML X1 BEFORE INCISION IVPB ONE (06:00)
[2017-02-23] MEDS ORDERED: SOD CHLORIDE 0.9% IVPB ONE (06:00)
[2017-02-23] MEDS ORDERED: TRANEXAMIC ACID IVPB ONE (06:00)
[2017-02-23] MEDS ORDERED: SOD CHLORIDE 0.9% IV ONE (06:00)
[2017-02-23] MEDS ORDERED: CELECOXIB 400 MG PO X1 DOSE PO ONE (06:00)
[2017-02-23] MEDS ORDERED: PAIN COCKTAIL-CEFUROXIME IRR ONE ×7 (06:00)
[2017-02-23] MEDS ORDERED: oxyCODONE (CR) 10 MG TAB [oxyCONTIN] X1 DOSE PO ONE (06:00)
[2017-02-23] MEDS ORDERED: TRANEXAMIC ACID IV ONE (06:00)
[2017-02-23] MEDS ORDERED: BACITRACIN 50000 UNITS INJ ONE (06:38)
[2017-02-23] MEDS ORDERED: POLYMYXIN B 500000 UNIT INJ ONE (06:41)
[2017-02-23] MEDS ORDERED: VANCOMYCIN 1 GM INJ ONE (06:41)
[2017-02-23] MEDS ORDERED: PROPOFOL 20 ML ONE (07:09)
[2017-02-23] MEDS ORDERED: FENTAnyl 50 MCG/ML VIAL ONE (07:10)
[2017-02-23] MEDS ORDERED: CEFAZOLIN 1 GM INJ ONE (07:10)
[2017-02-23] MEDS ORDERED: NEOSTIGMINE 3 MG/3 ML SYRINGE ONE (07:10)
[2017-02-23] MEDS ORDERED: MIDAZOLAM 1 MG/ML 2 ML INJ ONE (07:10)
[2017-02-23] MEDS ORDERED: ROCURONIUM 50 MG INJ ONE (07:10)
[2017-02-23] MEDS ORDERED: ONDANSETRON 4 MG INJ ONE (07:10)
[2017-02-23] MEDS ORDERED: DEXAMETHASONE 4 MG/ML 1 ML INJ ONE (07:10)
[2017-02-23] MEDS ORDERED: GLYCOPYRROLATE 0.4 MG INJ ONE (07:10)
--- NOTE | 2017-02-23 07:11 | HPN ---
Date/Time of Note Date/Time of Note DATE: 02/23/17 TIME: 07:10 Interval H&P Admission Note Pt. seen H&P reviewed: No system changes No change from H&P on 02/16/17 by MONET Cedillo MD Feb 23, 2017 07:11
[2017-02-23] MEDS ORDERED: PROPOFOL 100 ML ONE (08:08)
[2017-02-23] MEDS ORDERED: ETOMIDATE 20 MG INJ ONE (08:08)
[2017-02-23] MEDS ORDERED: EXPAREL NOTE (BUPIVICAINE LIPOSOMAL) XX SCH (08:30)
[2017-02-23] MEDS ORDERED: TRIMETHOBENZAMIDE 100 MG/ML VIAL IM PRN (09:00)
[2017-02-23] MEDS ORDERED: FENTAnyl 50 MCG/ML VIAL IV PRN ×3 (09:00)
[2017-02-23] MEDS ORDERED: OXYCODONE/ACETAMINOPHEN (5/325) TAB PO PRN ×2 (09:00)
[2017-02-23] MEDS ORDERED: MIDAZOLAM 1 MG/ML 2 ML INJ IV PRN (09:00)
[2017-02-23] MEDS ORDERED: LABETALOL HCL 20MG INJ IV PRN (09:00)
[2017-02-23] MEDS ORDERED: EPHEDrine SULFATE 50 MG/5 ML SYG IV PRN (09:00)
[2017-02-23] MEDS ORDERED: hydrALAzine 20 MG INJ IV PRN (09:00)
[2017-02-23] MEDS ORDERED: DIPHENHYDRAMINE 50 MG INJ IV PRN (09:00)
[2017-02-23] MEDS ORDERED: HYDROmorphONE (0.2 MG/ML) 10ML SYG IV PRN ×3 (09:00)
[2017-02-23] MEDS ORDERED: ONDANSETRON 4 MG INJ IV PRN ×2 (09:00→10:00)
[2017-02-23] MEDS ORDERED: MEPERIDINE 25 MG INJ IV PRN (09:00)
--- NOTE | 2017-02-23 09:56 | PN ---
Date/Time of Note Date/Time of Note DATE: 02/23/17 TIME: 09:54 Assessment/Plan Lines/Catheters IV Catheter Type (from Nrsg): Peripheral IV Assessment/Plan Assessment/Plan Stable in PACU, s/p left anterior LETICIA -continue Ancef until drains removed -pain meds as needed -ASA/SCDs for DVT prophylaxis -OOB with PT -check AM labs -monitor drain -d/c gallegos in AM XR of the left hip is pending at this time Subjective 24 Hr Interval Summary Stable in PACU. Denies pain. Moving all extremities. Exam/Review of Systems Vital Signs Vitals Vital Signs Date Time Temp Pulse Resp B/P Pulse Ox O2 Delivery O2 Flow Rate FiO2 02/23/17 06:01 98.1 72 18 131/77 96 Room Air Exam Free Text/Dictation Hemovac: minimal Dressing dry Incision clean, dry, and intact without redness or drainage 5/5 Quadriceps, Tibialis Anterior, EHL, Gastroc, Soleus, Peroneals Normal sensation Palpable DT/PT, CR <2 sec No distal edema HOWARD TRINIDAD PA-C Feb 23, 2017 09:56
[2017-02-23] MEDS ORDERED: BISACODYL 10 MG SUPP PR PRN (10:00)
[2017-02-23] MEDS ORDERED: DIPHENHYDRAMINE 25 MG CAP PO PRN (10:00)
[2017-02-23] MEDS ORDERED: NACL 0.9% 3 ML SYG IV SCH (10:00)
[2017-02-23] MEDS ORDERED: HYDROmorphONE 1 MG/ML SYG IV PRN (10:00)
[2017-02-23] MEDS ORDERED: HYDROCODONE/APAP (7.5/325) TAB PO PRN (10:00)
[2017-02-23] MEDS ORDERED: NA PHOSPHATE/BIPHOS 133 ML ENEMA PR PRN (10:00)
[2017-02-23] MEDS ORDERED: ASPIRIN (EC) 325 MG TAB PO ONE (10:00)
[2017-02-23] MEDS ORDERED: MAGNESIUM HYDROXIDE 30ML CUP PO PRN (10:00)
--- NOTE | 2017-02-23 10:12 | OPR ---
Date/Time of Note Date/Time of Note DATE: 02/23/17 TIME: 10:07 Operative Report Anesthesia: general, spinal Procedure Description DATE: 02/23/2017 PREOPERATIVE DIAGNOSIS: Left hip osteoarthritis POSTOPERATIVE DIAGNOSIS: Left hip osteoarthritis OPERATION PERFORMED: Left anterior total hip arthroplasty SURGEON: Monet Phelps MD FINANCIAL AID: Rick Maher PA-C COMPONENTS USED: Depuy size 50 mm Gription Xenia cup, 50/32 neutral Altrx polyethylene liner, size 6 standard Actis stem, 32+1 ceramic head ANESTHESIA: Spinal plus general endotracheal intubation. ANESTHESIOLOGIST: Gary Dale M.D. ESTIMATED BLOOD LOSS: 300 cc INTRAVENOUS FLUIDS: Crystalloid 2 L. SPECIMENS: Femoral head. DRAINS: Hemovac 1 COMPLICATIONS: None. DISPOSITION: The patient tolerated the procedure well and was taken to the recovery room in stable condition. INDICATIONS: The patient is a 76-year-old woman who has had progressively worsening pain in the left hip with radiographic evidence of severe osteoarthritis. She has failed nonsurgical means of treatment to address her pain including activity modifications, pain medications, and ambulatory assist devices. Despite these measures she has had worsening pain and I feel she will benefit from a total hip arthroplasty through an anterior approach. The risks, benefits, and alternatives of the procedure were explained in detail to the patient. I explained the risks of the surgery to include, but not be limited to: bleeding and possible need for blood transfusion; infection; pain; stiffness; neurovascular injury with possible numbness, weakness, and/or paralysis anywhere from the hip down to the toes; fracture; instability; dislocation; leg length inequality; wear and/or loosening of the prosthesis and possible need for future revision; blood clots; pulmonary embolism; and anesthetic complications such as heart attack, stroke, GI bleed, pneumonia, and/ or . Ample time was allowed for the patient to ask questions, all of which were addressed and answered. The patient understood the risks involved and wished to proceed. Informed consent was signed prior to the procedure. PROCEDURE: The patient's left hip was initialed with a marking pen in the preoperative area to identify the correct operative site. The patient was brought to the operating room and transferred from the [facility] to the [facility] where a spinal anesthetic was administered. The patient was then anesthetized and intubated. A Hallman catheter was placed. Both feet were placed into well padded boots which were then placed into the leg holders of the traction booms. A timeout was performed to confirm that the left side was the correct operative site. The patient was given 2 g of intravenous Ancef within one hour prior to the procedure. The operative hip was prepped and draped in the usual sterile fashion. A 10 cm oblique incision was made over the anterior aspect of the hip and carried down through subcutaneous tissue and fat with sharp dissection. The tensor fascia vargas was incised along the length of the wound. The tensor fascia muscle was retracted laterally and the sartorius medially. The anterior circumflex vessels were identified and tied off with 2-0 silk suture and coagulated with the Tissue Link truckload checker. The rectus femoris was elevated off the anterior capsule and an anterior capsulectomy performed. A femoral neck osteotomy was made and the head removed from the acetabulum. The acetabulum was denuded of cartilage circumferentially, as was the femoral head. Retractors were placed around the acetabulum. The remnants of the labrum and ligamentum teres were excised. I reamed the acetabulum to the medial wall and then went into an anatomic position and increased the reamer size in 2 mm increments until I got a good bite and was down to bleeding subchondral bone. The Xenia cup was opened and impacted into the acetabulum and sat flush circumferentially, getting a good bite. C-arm imaging showed it had about 40 to 45 degrees of abduction and 20 degrees of anteversion. The real liner was opened and impacted into the acetabulum and sat flush circumferentially. Attention was turned towards the femur. The operative leg was carefully lowered to the floor with the leg adducted. The foot was then externally rotated to approximately 110 degrees. A posteromedial release was performed to optimize exposure. The femoral hook was placed underneath the proximal femur and the hydraulic lift was then used to elevate the femur up out of the wound. The penny cutter osteotome was used to remove the remaining overhanging greater trochanter. The femur was then broached, going up in one size increments until it sat flush with the neck cut and a stable fit was achieved. The trial neck and head were assembled and reduced into the acetabulum. Fluoroscopic imaging showed the components to be in good position and the leg lengths and offsets to be equal. At this point, the trial was dislocated and the trial broach removed. The canal was irrigated and dried. The real stem was opened and impacted into the femur. The trunnion was irrigated and dried, and the real femoral head was impacted onto the trunnion, and reduced into the acetabulum. The soft tissues were infiltrated with a mixture of 150 mg of 0.5% Bupivacaine, 8 mg of Duramorph, 300 mcg of epinephrine, 30 mg of Toradol, 100 mcg of clonidine, 750 mg of cefuroxime and 86 mL of normal saline, followed by an injection of 266 mg of liposomal Bupivacaine. At this point the hip was irrigated with a mixture of betadine/saline and then antibiotic saline with pulsatile lavage. A Hemovac drain was placed in the deep portion of the wound and brought out the anterolateral thigh. There was good hemostasis. The tensor fascia vargas was repaired with a running #1 Vicryl. The deep fat layer was irrigated and closed with 2-0 Stratafix and the subcutaneous layer closed with 3 -0 Vicryl and the skin was closed with osiris and then sealed with Dermabond. The drain was secured with 3-0 nylon. The sponge and needle counts were correct at the end of the case. The wound was covered with an occlusive dressing. The patient was awakened, extubated, and taken to the recovery room in stable condition. MONET PHELPS MD Feb 23, 2017 10:11
[2017-02-23] MEDS: CEFAZOLIN 2 GM/50 ML (PMX) 50 ML IVPB SCH ×2 (10:26→20:41)
[2017-02-23 10:45] LABS: CREATININE 0.61 mg/dl (0.44-1.00); POTASSIUM 3.9 mmol/L (3.5-5.1)
--- NOTE | 2017-02-23 11:05 | RADRPT ---
PROCEDURE: XR Hip. CLINICAL INDICATION: Postop. TECHNIQUE: An AP view of the pelvis was obtained. COMPARISON: Right hip x-rays dated 01/09/2017 FINDINGS: There are postsurgical changes from left total hip arthroplasty with femoral and acetabular componen ts. The hardware is intact. Alignment appears satisfactory on the provided image. No fracture is identified. There are expected post surgical changes with mild subcutaneous emphysema, skin osiris and catheter. There are remote postsurgical changes from right total hip arthroplasty. IMPRESSION: Expected postoperative changes from total left hip arthroplasty. Alignment appears anatomic. RPTAT: HH .Zelda Caicedo MD, MD Date Time Electronically viewed and signed by .Zelda Caicedo MD, MD on 02/23/2017 11:05 .G/
--- NOTE | 2017-02-23 11:07 | RADRPT ---
PROCEDURE: XR Hip. CLINICAL INDICATION: Postop. TECHNIQUE: An AP view of the left hip was obtained. COMPARISON: None. FINDINGS: There are postsurgical changes from left total hip arthroplasty with femoral and acetabular componen ts. The hardware is intact. Alignment appears satisfactory on the provided image. No fracture is identified. There are expected post surgical changes with mild subcutaneous emphysema, skin osiris and catheter. IMPRESSION: Expected postoperative changes from total left hip arthroplasty. Alignment appears anatomic. RPTAT: HH .Zelda Caicedo MD, MD Date Time Electronically viewed and signed by .Zelda Caicedo MD, MD on 02/23/2017 11:06 .G/
[2017-02-23 11:09] LABS: HEMATOCRIT 40.3 % (37.0-47.0)
--- NOTE | 2017-02-23 11:09 | RADRPT ---
PROCEDURE: Intraoperative C-arm views CLINICAL INDICATION: Left hip arthroplasty TECHNIQUE: Images were obtained intraoperatively during a left hip arthroplasty procedure. COMPARISON: None available FINDINGS: X-ray images were obtained intraoperatively for localization during a left hip arthroplasty. 18 sec onds of fluoroscopy time was utilized. 16 intraoperative images of the left hip and pelvis were obta ined. IMPRESSION: 18 seconds of fluoroscopy time utilized intraoperatively for localization during a left total hip a rthroplasty. 16 intraoperative images of the left hip and pelvis were obtained. RPTAT: HH .Zelda Caicedo MD, MD Date Time Electronically viewed and signed by .Zelda Caicedo MD, on 02/23/2017 11:09 .Caleb/
[2017-02-23] MEDS: traMADol 50 MG TAB PO SCH ×3 (12:00→23:17)
[2017-02-23] MEDS ORDERED: TRANEXAMIC ACID 790 MG in SOD CHLORIDE 0.9% 100 ML IVPB ONE ×2 (13:00→16:00)
[2017-02-23] MEDS: PANTOPRAZOLE (EC) 40 MG TAB PO SCH (18:41)
[2017-02-23] MEDS: DOCUSATE SODIUM 100 MG CAP PO SCH (20:40)
[2017-02-24 00:12] VITALS: BP 99/58; RESP 19
[2017-02-24] MEDS: LACTATED RINGER'S 1,000 ML IV SCH (01:56)
[2017-02-24] MEDS: CEFAZOLIN 2 GM/50 ML (PMX) 50 ML IVPB SCH (04:50)
[2017-02-24 05:10] LABS: HEMATOCRIT 32.3 % (37.0-47.0); HEMOGLOBIN 10.3 g/dl (12.0-16.0)
[2017-02-24 05:36] LABS: CALCIUM 9.2 mg/dl (8.4-10.2); CREATININE 0.56 mg/dl (0.44-1.00); POTASSIUM 4.5 mmol/L (3.5-5.1)
[2017-02-24] MEDS: PANTOPRAZOLE (EC) 40 MG TAB PO SCH ×2 (06:14→18:01)
[2017-02-24] MEDS: traMADol 50 MG TAB PO SCH ×3 (06:14→18:01)
[2017-02-24 06:34] LABS: ADD UMIC YES; UR ASCORBIC ACID NEGATIVE (NEGATIVE); UR BILIRUBIN (Dip) NEGATIVE (NEGATIVE); UR BLOOD (Dip) 1+ mg/dL (NEGATIVE); UR CLARITY CLEAR (CLEAR); UR COLOR STRAW (YELLOW); UR GLUCOSE (Dip) NEGATIVE (NEGATIVE); UR KETONES (Dip) NEGATIVE (NEGATIVE); UR LEUKOCYTE ESTERASE (Dip) NEGATIVE Leu/ul (NEGATIVE); UR NITRITE (Dip) NEGATIVE (NEGATIVE); UR RBC 1 /HPF (0-5); UR SPECIFIC GRAVITY (Dip) 1.005 (1.003-1.030); UR TOTAL PROTEIN (Dip) NEGATIVE (NEGATIVE); UR UROBILINOGEN (Dip) NEGATIVE (NEGATIVE)
[2017-02-24 07:57] VITALS: BP 112/59; RESP 16
--- NOTE | 2017-02-24 08:30 | PN ---
Date/Time of Note Date/Time of Note DATE: 02/24/17 TIME: 08:28 Assessment/Plan Lines/Catheters IV Catheter Type (from Nrsg): Peripheral IV Hallman in Place (from Nrsg): Yes Assessment/Plan Assessment/Plan Stable POD #1, s/p left anterior LETICIA -d/c Ancef -pain meds as needed -ASA/SCDs for DVT prophylaxis -OOB with PT -drain removed -check AM labs -d/c planning. Will plan to go home upon discharge Subjective 24 Hr Interval Summary No acute overnight event. Denies any pain. Began PT yesterday. VSS, afebrile. Will plan to go home upon discharge. Exam/Review of Systems Vital Signs Vitals Vital Signs Date Time Temp Pulse Resp B/P Pulse Ox O2 Delivery O2 Flow Rate FiO2 02/24/17 07:57 98.0 67 16 112/59 69 02/23/17 13:45 Nasal Cannula 02/23/17 10:00 2.0 Intake and Output 02/23/17 02/23/17 02/24/17 15:00 23:00 07:00 Intake Total 2000 ml 1150 ml 1500 ml Output Total 960 ml 1050 ml 1800 ml Balance 1040 ml 100 ml -300 ml Exam Free Text/Dictation Hemovac: 60cc Dressing dry Incision clean, dry, and intact without redness or drainage 5/5 Quadriceps, Tibialis Anterior, EHL, Gastroc, Soleus, Peroneals Normal sensation Palpable DT/PT, CR <2 sec No distal edema Results Result Diagram: 02/24/17 0425 02/24/17 0425 HOWARD TRINIDAD PA-C Feb 24, 2017 08:30
[2017-02-24] MEDS: ASPIRIN (EC) 325 MG TAB PO SCH ×2 (09:02→21:25)
[2017-02-24] MEDS: DOCUSATE SODIUM 100 MG CAP PO SCH ×2 (09:02→21:25)
--- NOTE | 2017-02-24 10:38 | PN ---
Date/Time of Note Date/Time of Note DATE: 02/24/17 TIME: 10:36 Assessment/Plan VTE Prophylaxis VTE Prophylaxis Intervention: other Lines/Catheters IV Catheter Type (from Nrsg): Peripheral IV Central line still needed: No Urinary Cath still in place: No Assessment/Plan Assessment/Plan 1. POD #1 thr, cont PT, anticipate d/c home in am 2. constipation regimen. 3. flonase for allergies Subjective 24 Hr Interval Summary Free Text/Dictation pain controlleed, no nausea, some constipation planning home to [place] with step daughter to assist does complain of some couogh and throat clearing, thinks it is allergies Exam/Review of Systems Vital Signs Vitals Vital Signs Date Time Temp Pulse Resp B/P Pulse Ox O2 Delivery O2 Flow Rate FiO2 02/24/17 07:57 98.0 67 16 112/59 69 02/23/17 13:45 Nasal Cannula 02/23/17 10:00 2.0 Intake and Output 02/23/17 02/23/17 02/24/17 15:00 23:00 07:00 Intake Total 2000 ml 1150 ml 1500 ml Output Total 960 ml 1050 ml 1800 ml Balance 1040 ml 100 ml -300 ml Exam nad, ncat, neck soft and supple. ctab, rrr, soft nt Results Result Diagram: 02/24/175 02/24/17 0425 Results 24 hrs Laboratory Tests Test 02/24/17 04:25 02/24/17 04:30 Hemoglobin 10.3 #L Hematocrit 32.3 L Sodium Level 141 Potassium Level 4.5 Chloride Level 104 Carbon Dioxide Level 28 Anion Gap 14 Blood Urea Nitrogen 12 Creatinine 0.56 Glucose Level 103 Calcium Level 9.2 Urine Color STRAW Urine Clarity CLEAR Urine pH 6.0 Urine Specific [place] 1.005 Urine Ketones NEGATIVE Urine Nitrite NEGATIVE Urine Bilirubin NEGATIVE Urine Urobilinogen NEGATIVE Urine Leukocyte Esterase NEGATIVE Urine Microscopic RBC 1 Urine Microscopic WBC 1 Urine Hemoglobin 1+ H Urine Glucose NEGATIVE Urine Total Protein NEGATIVE Medications Medications Current Medications Lactated Ringer's (Lr) 1,000 ml @ 125 mls/hr Q8H IV Last administered on 19:00; Admin Dose 125 MLS/HR; Start 02/23/17 at 09:50 Tramadol HCl (Ultram) 50 mg Q6 PO Last administered on 02/24/17 06:14; Admin Dose 50 MG; Start 02/23/17 at 12:00; Stop 02/26/17 at 11:59 Hydromorphone HCl (Dilaudid) 1 mg Q3H PRN IV PAIN LEVEL 8-10; Start 02/23/17 at 10:00 Ondansetron HCl (Zofran Inj) 4 mg Q6H PRN IV NAUSEA AND/OR VOMITING; Start 02/23 at 10:00 Bisacodyl (Dulcolax Supp) 10 mg Q12H PRN [place] CONSTIPATION; Start 02/23/17 at 10: 00 Magnesium Hydroxide (Milk Of Mag) 30 ml BID PRN PO CONSTIPATION; Start 02/23/17 at 10:00 Sodium Biphosphate/ Sodium Phosphate (Fleet Enema) 133 ml DAILY PRN [place] CONSTIPATION; Start 02/23/17 at 10:00 Docusate Sodium (Colace) 100 mg BID PO Last administered on 02/24/17 09:02; Admin Dose 100 MG; Start 02/23/17 at 21:00 Diphenhydramine HCl (Benadryl) 25 mg Q6H PRN PO PRURITUS; Start 02/23/17 at 10: 00 Acetaminophen/ Hydrocodone Bitart (Bee (7.5-325)) 1 tab Q4H PRN PO PAIN LEVEL 1-3; Start 02/23/17 at 10:00 Acetaminophen/ Hydrocodone Bitart (Bee (7.5-325)) 2 tab Q4H PRN PO PAIN LEVEL 4-7; Start 02/23/17 at 10:00 Aspirin (Ecotrin) 325 mg BID PO Last administered on 02/24/17 09:02; Admin Dose 325 MG; Start 02/24/17 at 09:00 Pantoprazole (Protonix Tab) 40 mg BID@,18 PO Last administered on 02/24/17 06 :14; Admin Dose 40 MG; Start 02/23/17 at 18:00 DL JEAN MD Feb 24, 2017 10:38
[2017-02-24] MEDS: FLUTICASONE 0.05% 16 GM NAS SPRAY NASAL SCH ×2 (12:04→21:24)
[2017-02-24] MEDS: SENNA TAB PO SCH ×2 (12:04→21:26)
[2017-02-24] MEDS: HYDROCODONE/APAP (7.5/325) TAB PO PRN (15:09)
[2017-02-24 20:26] VITALS: BP 129/60; RESP 18
[2017-02-25] MEDS: traMADol 50 MG TAB PO SCH ×4 (00:36→17:44)
[2017-02-25 05:29] LABS: HEMATOCRIT 35.9 % (37.0-47.0); HEMOGLOBIN 11.7 g/dl (12.0-16.0)
[2017-02-25] MEDS: PANTOPRAZOLE (EC) 40 MG TAB PO SCH ×2 (05:45→17:44)
[2017-02-25 06:03] LABS: CALCIUM 9.5 mg/dl (8.4-10.2); CREATININE 0.58 mg/dl (0.44-1.00); POTASSIUM 3.8 mmol/L (3.5-5.1)
[2017-02-25 07:00] VITALS: BP 171/77; RESP 18
[2017-02-25] MEDS ORDERED: LORATADINE 10 MG TAB PO ONE (08:30)
[2017-02-25] MEDS ORDERED: ACETYLCYSTEINE 20% 4 ML VIAL NEB ONE (08:30)
[2017-02-25] MEDS ORDERED: ENALAPRILAT 1.25 MG INJ IV PRN (08:30)
[2017-02-25] MEDS: FLUTICASONE 0.05% 16 GM NAS SPRAY NASAL SCH ×2 (08:30→21:53)
[2017-02-25] MEDS: SENNA TAB PO SCH ×2 (08:37→21:00)
[2017-02-25] MEDS: DOCUSATE SODIUM 100 MG CAP PO SCH ×2 (08:37→21:53)
[2017-02-25] MEDS: ASPIRIN (EC) 325 MG TAB PO SCH ×2 (08:37→21:53)
[2017-02-25 08:40] VITALS: BP 138/71
[2017-02-25] MEDS ORDERED: ACETYLCYSTEINE 20% 4 ML VIAL NEB PRN (09:00)
[2017-02-25] MEDS ORDERED: LORATADINE 10 MG TAB PO PRN (09:00)
--- NOTE | 2017-02-25 11:07 | PN ---
Date/Time of Note Date/Time of Note DATE: 02/25/17 TIME: 11:05 Assessment/Plan Lines/Catheters IV Catheter Type (from Nrsg): Saline Lock Hallman in Place (from Nrsg): No Assessment/Plan Assessment/Plan Stable POD #2, s/p left anterior LETICIA -pain meds as needed -ASA/SCDs -dressing changed -OOB with PT -check AM labs -plan to discharge home tomorrow Subjective 24 Hr Interval Summary No acute overnight events. Denies significant pain. Having some mild constipation. VSS, afebrile. Would like to go home tomorrow. Exam/Review of Systems Vital Signs Vitals Vital Signs Date Time Temp Pulse Resp B/P Pulse Ox O2 Delivery O2 Flow Rate FiO2 02/25/17 08:40 138/71 02/25/17 07:00 98.6 82 18 94 02/23/17 13:45 Nasal Cannula 02/23/17 10:00 2.0 Intake and Output 02/24/17 02/24/17 02/25/17 15:00 23:00 07:00 Intake Total 1160 ml 720 ml Output Total 4 ml Balance 1160 ml 716 ml Exam Free Text/Dictation Dressing dry Incision clean, dry, and intact without redness or drainage 5/5 Quadriceps, Tibialis Anterior, EHL, Gastroc, Soleus, Peroneals Normal sensation Palpable DT/PT, CR <2 sec No distal edema Results Result Diagram: 02/25/17 0433 02/25/17 0433 HOWARD TRINIDAD PA-C Feb 25, 2017 11:06
--- NOTE | 2017-02-25 11:12 | PDOCDIS ---
Discharge Instructions DIAGNOSIS Discharge Diagnosis s/p left anterior LETICIA CONDITION Patient Condition: Good HOME CARE INSTRUCTIONS: Diet Instructions: RegularSpecial Diet: RD ACTIVITY: Activity Restrictions: Slowly Increase Activity Rest between Activity Avoid heavy lifting Do not operate Machinery Do not operate Power Tool Avoid Heavy Housework Keep Limb Elevated Weight Bearing Bathing Restrictions: Shower FOLLOW UP/APPOINTMENTS Follow-up Plan follow up in the office on 03/06/17 OTHER ORDERS: Other Orders: S/P Anterior LETICIA Physical Therapy: Three times per week at home x 2 weeks Daily in Rehab/SNF WB STATUS: @@ Strengthening exercises for both upper and un-operated lower extremities. 1. Gait training with front wheeled walker 2. Wide base gait, no pivot turns. 3. Abductor strengthening. 4. Quadriceps and hamstring strengthening. 5. May switch to cane in contra lateral hand 6 weeks after surgery. 6. Physical Therapy can open case if nursing is not available. 7. Ice Packs while at rest to surgical wound for 20 minutes, 3 times/day. 8. Patient requires mobile SCDs to reduce risk of developing DVT following LETICIA. Patient will use the mobile SCDs for 30 days postoperatively. Hip Precautions: No posterior hip precautions. Bathing assistance by home health aide twice weekly if Medicare patient. Occupational Therapy: Evaluation for assistive devices and ADL training. Wound Care: Keep incision dry & covered with Tegaderm until first visit with Dr. Garcia Anticoagulation Orders: Enteric Coated Aspirin 325 mg po bid x 6 weeks from date of surgery Follow-up:Call for an appointment with Dr. Garcia in 1 week after discharged from hospital at DME Orders: AMANDA, 3-in-1 Commode, Mobile SCDs HOWARD TRINIDAD PA-C Feb 25, 2017 11:11
[2017-02-25] MEDS ORDERED: ASPI325T32 PO (11:13)
[2017-02-25] MEDS ORDERED: PANT40TA4 PO (11:13)
[2017-02-25 20:00] VITALS: BP 137/71; RESP 18
[2017-02-26] MEDS: PANTOPRAZOLE (EC) 40 MG TAB PO SCH (06:21)
[2017-02-26] MEDS: traMADol 50 MG TAB PO SCH ×2 (06:21)
[2017-02-26 06:33] LABS: HEMATOCRIT 33.4 % (37.0-47.0); HEMOGLOBIN 11.2 g/dl (12.0-16.0)
[2017-02-26 06:57] LABS: CALCIUM 8.9 mg/dl (8.4-10.2); CREATININE 0.52 mg/dl (0.44-1.00); POTASSIUM 3.7 mmol/L (3.5-5.1)
[2017-02-26] MEDS: FLUTICASONE 0.05% 16 GM NAS SPRAY NASAL SCH (08:50)
[2017-02-26] MEDS: ASPIRIN (EC) 325 MG TAB PO SCH (08:50)
[2017-02-26] MEDS: DOCUSATE SODIUM 100 MG CAP PO SCH (08:50)
[2017-02-26] MEDS: SENNA TAB PO SCH (08:51)
--- NOTE | 2017-02-26 10:29 | PN ---
Date/Time of Note Date/Time of Note DATE: 02/26/17 TIME: 10:28 Assessment/Plan Lines/Catheters IV Catheter Type (from Nrsg): Saline Lock Hallman in Place (from Nrsg): No Assessment/Plan Assessment/Plan Stable POD #3, s/p left anterior LETICIA -pain meds as needed -ASA/SCDs -OOB with PT -dressing changed -d/c home today -follow up in the office in 1 week Subjective 24 Hr Interval Summary No acute overnight events. Denies significant pain. Progressing well with PT. VSS, afebrile. Will plan to discharge home today. Exam/Review of Systems Vital Signs Vitals Vital Signs Date Time Temp Pulse Resp B/P Pulse Ox O2 Delivery O2 Flow Rate FiO2 02/25/17 20:00 98.7 99 18 137/71 93 02/23/17 13:45 Nasal Cannula 02/23/17 10:00 2.0 Intake and Output 02/25/17 02/25/17 02/26/17 15:00 23:00 07:00 Intake Total 1100 ml 960 ml Output Total 900 ml 1050 ml Balance 200 ml -90 ml Exam Free Text/Dictation Dressing dry Incision clean, dry, and intact without redness or drainage 5/5 Quadriceps, Tibialis Anterior, EHL, Gastroc, Soleus, Peroneals Normal sensation Palpable DT/PT, CR <2 sec No distal edema Results Result Diagram: 02/26/17 0505 02/26/17 0505 HOWARD TRINIDAD PA-C Feb 26, 2017 10:29
[2017-02-26] MEDS: HYDROCODONE/APAP (7.5/325) TAB PO PRN (13:20)
== END 2017-02-26 14:30 | disposition home or self-care (01) | DRG 470 ==
LOC: REC 05:32 → MS1 10:56
PROVIDERS: ADMIT Orthopaedic Surgery; ATTEND Orthopaedic Surgery
PROC: 0SRB04A Replacement of Left Hip Joint with Ceramic on Polyethylene Synthetic Substitute, Uncemented, Open Approach (ICD-10-PCS; principal; 2017-02-23 07:00)
DX: M16.12 Unilateral primary osteoarthritis, left hip (principal); I73.9 Peripheral vascular disease, unspecified; K21.9 Gastro-esophageal reflux disease without esophagitis
CPT/HCPCS: 72170; 73500; 73530; 80048; 81001; 85014; 85018; 86850; 86900; 86901; 86920; 87081; 87086; 97110; 97116; 97162; 97167; 97530; C1776; C9290; J0171; J0690; J0697; J0735; J1100; J1885; J2250; J2274; J2405; J2710; J3010; J3370; J7120

== ENCOUNTER → 2017-03-06 | Outpatient (CLI) | payer OTHER ==
[~2017-03-06] MED LIST changes: -GABA300C PO; -OMEP40CA6 PO; +PANT40TA4 PO
--- NOTE | 2017-03-06 10:16 | PN ---
Date/Time of Note Date/Time of Note DATE: 03/06/17 TIME: 10:12 Assessment/Plan VTE Prophylaxis VTE Prophylaxis Intervention: ambulation, other Assessment/Plan Chief Complaint/Hosp Course 10 days status post left anterior total hip arthroplasty, doing well Problems: Assessment/Plan The osiris were removed today, and Steri-Strips were applied. She is to continue aspirin 325 mg twice daily for DVT prophylaxis. She is to continue physical therapy with home health. At this point she can transition to a cane as an assistive device. We will see her back in 4 weeks for repeat evaluation. She is to call the office in the meantime if she has any concerns. Subjective 24 Hr Interval Summary Free Text/Dictation The patient presents today for her first postoperative visit. She is 10 days status post left anterior total hip arthroplasty. She is doing very well overall. She is working with home health physical therapy. She is ambulated today without any assistive devices. She is currently on aspirin 325 mg twice daily for DVT prophylaxis. She is using pain medicine intermittently but is having some associated nausea. She denies any fevers or chills. She presents today for her first postop evaluation. Exam/Review of Systems Exam On exam today, she is alert and oriented 4, and in no acute distress. She is ambulating without any assistive devices. Exam of the incision demonstrates it to be clean dry and intact. [place] are placed. There is no erythema, warmth, pus, or drainage noted. There is no pain with passive range of motion of the left hip. There is no significant soft tissue swelling. Homans sign is negative. Compartments are soft. She is neurovascularly intact distally. IMAGING: X-rays of the left hip are obtained today and reviewed by me. They demonstrate good anatomic alignment with no fractures or dislocations identified. The hip leg lengths measure equal compared to the contralateral side. HOWARD TRINIDAD PA-C Mar 06, 2017 10:16
--- NOTE | 2017-03-06 16:11 | RADRPT ---
PROCEDURE: XR Left Hip and pelvis. CLINICAL INDICATION: Left hip pain. Pelvic pain. TECHNIQUE: Two views. Frontal pelvis and frontal left hip. COMPARISON: 01/09/2017. 02/23/2017. FINDINGS: There are bilateral total hip arthroplasties which appears satisfactory. There is no fracture, disl ocation, or loosening. There is no lytic or blastic lesion. Left lateral skin osiris are noted. IMPRESSION: 1. Satisfactory postoperative appearance of both hips. RPTAT: QQ .Roger Meneses MD, MD Date Time Electronically viewed and signed by .Roger Meneses MD, MD on 03/06/2017 16:11 .R/
== END | disposition home or self-care (01) ==
LOC: HKI 09:27
PROVIDERS: ATTEND Orthopaedic Surgery
DX: Z47.1 Aftercare following joint replacement surgery (principal); Z96.642 Presence of left artificial hip joint
CPT/HCPCS: 73502

== ENCOUNTER → 2017-04-07 | Outpatient (CLI) | payer OTHER ==
[~2017-04-07] MED LIST changes: +GABA300C PO; +MELO7.5O PO; +OMEP40CA6 PO
--- NOTE | 2017-04-07 15:49 | RADRPT ---
PROCEDURE: XR LEFT HIP. CLINICAL INDICATION: Left hip pain TECHNIQUE: 3 views of the left hip were performed. COMPARISON: 03/06/2017. FINDINGS: There has been no significant change. There are bilateral total hip arthroplasties which appears sa tisfactory. There is no fracture, dislocation, or loosening. There is no lytic or blastic lesion. Le ft lateral skin osiris are noted. IMPRESSION: 1. Satisfactory postoperative appearance of both hips. RPTAT: XX .Wyatt Saul MD, Date Time Electronically viewed and signed by .Wyatt Saul MD, on 04/07/2017 15:48 .T/
== END | disposition home or self-care (01) ==
LOC: HKI 10:40
PROVIDERS: ATTEND Orthopaedic Surgery
DX: M16.12 Unilateral primary osteoarthritis, left hip (principal); Z09 Encounter for follow-up examination after completed treatment for conditions other than malignant neoplasm; Z96.642 Presence of left artificial hip joint
CPT/HCPCS: 73502